=== PATIENT | female | born 1945 | race Caucasian/White ===

== ENCOUNTER → 2023-06-22 | Outpatient (CLI) | payer MEDICARE, OTHER, SELFPAY ==
[~2023-06-22] MED LIST: ASPI81TA83 OR; CLAR5CHW OR; COUM1TAB18 OR; EVISTA PO; LISI2.5T OR; LOVA20TA2 OR; METFORMIN PO; PERC5TAB8 PO; VITAMIN C PO; VITAMIN D PO
== END ==
LOC: M WHC 13:40
PROVIDERS: ATTEND Nurse Practitioner Family
DX: Z12.31 Encounter for screening mammogram for malignant neoplasm of breast (principal)

== ENCOUNTER → 2024-08-01 | Outpatient (CLI) | payer OTHER | LOC: M WHC 07:12 | PROVIDERS: ATTEND Nurse Practitioner Family | DX: Z12.31 Encounter for screening mammogram for malignant neoplasm of breast (principal); Z13.820 Encounter for screening for osteoporosis; M85.851 Other specified disorders of bone density and structure, right thigh; M85.852 Other specified disorders of bone density and structure, left thigh ==

== ENCOUNTER → 2025-09-06 | Outpatient (CLI) | payer OTHER | LOC: M WHC 15:21 | PROVIDERS: ATTEND Nurse Practitioner Family | DX: Z12.31 Encounter for screening mammogram for malignant neoplasm of breast (principal); R92.313 Mammographic fatty tissue density, bilateral breasts ==